=== PATIENT | female | born 1935 | race Caucasian/White ===

== ENCOUNTER → 2018-12-17 | Outpatient (CLI) | payer MEDICARE | END | disposition home or self-care (01) | LOC: Rad HDHVI 08:20 | PROVIDERS: ATTEND Internal Medicine Cardiovascular Disease | DX: I08.8 Other rheumatic multiple valve diseases (principal); I10 Essential (primary) hypertension | CPT/HCPCS: 93306 ==

== ENCOUNTER → 2018-12-18 | Outpatient (CLI) | payer MEDICARE ==
[~2018-12-18] VITALS: Ht 149.9 cm; Wt 49.9 kg
[~2018-12-18] MED LIST: ATO40T PO; ATOR10TA PO; DONE5TAB31 PO; HYDR12.56 PO; HYDR200T36 PO; LEV50T PO; LOSA-69 PO; NIFE90TA30 PO; TEMA30CA PO
== END | disposition home or self-care (01) ==
LOC: Rad HDHVI 08:10
PROVIDERS: ATTEND Internal Medicine Cardiovascular Disease
DX: R42 Dizziness and giddiness (principal); E78.00 Pure hypercholesterolemia, unspecified; I10 Essential (primary) hypertension
CPT/HCPCS: 78452; 93017; 96374; A9500

== ENCOUNTER → 2019-01-04 | Outpatient (CLI) | payer MEDICARE ==
[2019-01-04 09:30] VITALS: BP 116/57
[2019-01-04 10:15] VITALS: BP 112/59
--- NOTE | 2019-01-04 10:15 | NUR ---
Pre-Op Discharge Summary: See e-MAR for any medications given for this visit. Pre-op orders received and carried out per MD of EKG, LABS and chest xrays. Patient given a copy of EKG with instructions to go to [facility] out patient for further follow up care.
[2019-01-04 12:11] LABS: Basophils # (auto) 0 uL; Basophils % (auto) 0.6 % (0.0-2.0); Eosinophils # (auto) 0.1 uL; Eosinophils % (auto) 1.4 % (0.0-7.0); Hemoglobin 14.7 g/dL (12.2-16.2); Lymphocytes # (auto) 1.6 uL; Lymphocytes % (auto) 26.8 % (10.0-50.0); Mean Corpuscular Hemoglobin 31.9 pg (28.0-32.0); Mean Corpuscular Hgb Conc. 33.5 g/dL (32.0-36.0); Mean Corpuscular Volume 95.1 fL (80.0-100.0); Monocytes # (auto) 0.5 uL; Monocytes % (auto) 9.2 % (0.0-12.0); Neutrophils # (auto) 3.7 uL; Platelet Count (auto) 228 10^3/uL (140-450); Red Blood Cells 4.63 10^6/uL (4.0-5.20); Red Cell Distribution Width 13.7 % (11.8-14.3); White Blood Cell 5.9 10^3/uL (4.4-10.8)
[2019-01-04 12:19] LABS: Calcium 8.9 mg/dL (8.5-10.1); Potassium 3.5 mmol/L (3.5-5.1)
[2019-01-04 12:21] LABS: BUN/Creatinine Ratio 18.8
[2019-01-04 12:32] LABS: INR 0.97 (0.9-1.15); Partial Thromboplastin Time 25.2 sec (23.64-32.05)
== END | disposition home or self-care (01) ==
LOC: Rad HDHVI 09:16
PROVIDERS: ATTEND Internal Medicine Cardiovascular Disease
DX: I70.0 Atherosclerosis of aorta (principal); I51.7 Cardiomegaly; K44.9 Diaphragmatic hernia without obstruction or gangrene; R94.31 Abnormal electrocardiogram [ECG] [EKG]
CPT/HCPCS: 36415; 71046; 80048; 85025; 85610; 85730; 93005; G0463

== ENCOUNTER 2019-01-07 07:30 | Inpatient (IN) | payer MEDICARE ==
[~2019-01-07] VITALS: Ht 149.9 cm; Wt 51.1 kg
[2019-01-07] MEDS ORDERED: LIDOCAINE 2%HCL (LOCAL ANESTH.) INJ 20ML MDV ONE (08:07)
[2019-01-07] MEDS ORDERED: ceFAZolin 1GM/50ML 50 ML IV ONE ×2 (08:11→09:19)
[2019-01-07] MEDS ORDERED: fentaNYL CITRATE 100 MCG/2 ML VL ONE (09:18)
[2019-01-07] MEDS ORDERED: VANCOMYCIN HCL 1000 MG VL ONE (09:18)
[2019-01-07] MEDS ORDERED: MIDAZOLAM HCL 1MG/1ML-2 ML VIAL ONE (09:18)
[2019-01-07] MEDS ORDERED: VANCOMYCIN 1GM/250ML 250 ML IV ONE (09:19)
[2019-01-07] MEDS ORDERED: IOHEXOL 350 MG/ML 100ML IJ ONE (09:43)
[2019-01-07] MEDS ORDERED: LOSA-69 PO (10:49)
[2019-01-07] MEDS ORDERED: DONE5TAB31 PO (10:49)
[2019-01-07] MEDS ORDERED: TEMA30CA PO (10:49)
[2019-01-07] MEDS ORDERED: HYDR12.56 PO (10:56)
[2019-01-07] MEDS ORDERED: HYDR200T36 PO (10:56)
[2019-01-07] MEDS ORDERED: LEV50T PO (10:56)
[2019-01-07] MEDS ORDERED: ATOR10TA PO (10:56)
[2019-01-07] MEDS ORDERED: NIFE90TA30 PO (10:56)
[2019-01-07] MEDS ORDERED: ATO40T PO (11:01)
[2019-01-07] MEDS ORDERED: MORPHINE SULF INJ 2 MG/ML SYRINGE 1ML IV PRN (11:15)
[2019-01-07] MEDS ORDERED: LOSARTAN POTASSIUM 50 MG TAB PO ONE (11:15)
[2019-01-07] MEDS ORDERED: HCTZ 25 MG TAB PO ONE (11:15)
[2019-01-07] MEDS ORDERED: HYDROXYCHLOROQUINE SULFATE 200 MG TAB PO ONE (11:15)
[2019-01-07] MEDS ORDERED: LEVOTHYROXINE SODIUM 25 MCG TAB PO ONE (11:15)
[2019-01-07] MEDS ORDERED: ceFAZolin 1GM/50ML 50 ML IV SCH (11:15)
[2019-01-07] MEDS ORDERED: ACETAMINOPHEN 325 MG TAB PO PRN (11:15)
[2019-01-07] MEDS ORDERED: TEMAZEPAM 15 MG CAP PO PRN (11:15)
[2019-01-07] MEDS ORDERED: NITROGLYCERIN 0.4 MG SL TAB SL PRN (11:15)
[2019-01-07] MEDS ORDERED: NIFEdipine ER 30 MG TAB PO ONE (11:15)
[2019-01-07 15:30] VITALS: BP 126/59
--- NOTE | 2019-01-07 15:30 | NUR ---
PATIENT ARRIVED ON UNIT. RECEIVED REPORT FROM SHERICE. PATIENT ORIENTED TO [facility]. PATIENT ORIENTED TO HOSPITAL SETTING. PATIENT VERBALIZED UNDERSTANDING. PATIENT INFORMED TO KEEP ARM STILL AND REFRAIN FROM LIFTING. PATIENT FALL PRECAUTIONS PER HOSPITAL POLICY. BED IN LOWEST LOCKED POSITION WITH CALL LIGHT WITHIN REACH.
[2019-01-07 17:00] VITALS: BP 129/59
[2019-01-07] MEDS: ceFAZolin 1GM/50ML 50 ML IV SCH (17:45)
--- NOTE | 2019-01-07 19:05 | NUR ---
Opening Shift Note Received report from day shift nurseRandy. Assumed care of patient. Patient is awake, alert, and orientated x 3; patient unaware on how she go to the room. No S/S of distress/SOB or pain. Bed is in lowest position with side rails up x 4. Bed brakes are locked and call light is with in reach. HOB is 30 degrees and bed alarm is on. Instructed on POC and to call for assist PRN, will continue to monitor for changes Q1hr and PRN.
--- NOTE | 2019-01-07 20:15 | NUR ---
Bed alarm Pt getting up and setting off bed alarm regardless of being told numerous times to call and not get up. Pt is a/o x 3. Pt continues to ask how she got to the room regardless of being told numerous time. pt reorientated.
[2019-01-07] MEDS ORDERED: DONEPEZIL HYDROCHLORIDE 5 MG TAB PO SCH (22:00)
[2019-01-07] MEDS ORDERED: ATORVASTATIN 20 MG TAB PO SCH (22:00)
[2019-01-07 22:15] VITALS: BP 144/71
--- NOTE | 2019-01-07 22:51 | NUR ---
rounds Pt getting up and setting off bed alarm regardless of being told numerous times to call and not get up. pt's arm sling off. sling put in place and advised patient not to take off. Pt is a/o x 3. Pt continues to ask how she got to the room regardless of being told numerous time. pt reorientated.
[2019-01-08] MEDS ORDERED: HALOPERIDOL LACTATE 5 MG/ML INJ VIAL IV ONE (01:00)
[2019-01-08] MEDS: ceFAZolin 1GM/50ML 50 ML IV SCH (02:00)
--- NOTE | 2019-01-08 04:00 | NUR ---
TRANSFER The patient has been transferred from 247A to 288B. Report has been received from Abhijit LOPEZ. The patient is comfortable and stable. Patient refuses to keep sling on left arm. The patient has been educated about the sling and why it is necessary to keep on.
[2019-01-08 04:40] VITALS: BP_SYST 145; BP_SYST 156; BP_DIAS 69; BP_DIAS 92
--- NOTE | 2019-01-08 07:20 | NUR ---
pt awake, alert, oriented to self, , time. re-oriented pt to room environment. pt under direct observation, bed locked and in lowest position, will continue to monitor.
[2019-01-08 09:00] VITALS: BP 143/65
[2019-01-08] MEDS ORDERED: NIFEdipine ER 30 MG TAB PO SCH (10:00)
[2019-01-08] MEDS ORDERED: HCTZ 25 MG TAB PO SCH (10:00)
[2019-01-08] MEDS ORDERED: LOSARTAN POTASSIUM 50 MG TAB PO SCH (10:00)
[2019-01-08] MEDS ORDERED: LEVOTHYROXINE SODIUM 25 MCG TAB PO SCH (10:00)
[2019-01-08] MEDS ORDERED: HYDROXYCHLOROQUINE SULFATE 200 MG TAB PO SCH (10:00)
[2019-01-08 11:24] VITALS: BP 143/65
--- NOTE | 2019-01-08 12:23 | NUR ---
MOBILE DEVICE ENGINEER CONFIRMATION OF ACCEPTANCE TO [facility].
[2019-01-08 13:00] VITALS: BP 140/69
--- NOTE | 2019-01-08 13:24 | NUR ---
D/C Planning Per consult for home health for physical therapy, surgical wound care and medication monitoring. Information and choice letter was given to Pt at bedside. Pt had no home health preference. Advised Pt at bedside order will be sent to [facility]. Pt verbalize understanding. Contact [facility] Ph:( [phone]) Fax:( [phone] faxed medical records. Per Sj from [facility] Pt has been accepted and service to start within 48hrs upon d/c day. Informed JOHN Howell. Addendum: 01/08/19 at 1332 by ELIZABETH SENA Amended: Links added.
--- NOTE | 2019-01-08 15:30 | NUR ---
PATIENT DC'D BY COVERING RN (HERBERTH). ALL QUESTIONS AND CONCERNS ADDRESSED.
== END 2019-01-08 15:15 | disposition home health service (06) | DRG 244 ==
LOC: CATH 07:30 → TELE-EAST 07:31 → TELE-WESTW 01-08 04:09
PROVIDERS: ADMIT Internal Medicine Cardiovascular Disease; ATTEND Internal Medicine Cardiovascular Disease
PROC: 0JH606Z Insertion of Pacemaker, Dual Chamber into Chest Subcutaneous Tissue and Fascia, Open Approach (ICD-10-PCS; principal; 2019-01-07)
PROC: 02H63JZ Insertion of Pacemaker Lead into Right Atrium, Percutaneous Approach (ICD-10-PCS; 2019-01-07)
PROC: 02HK3JZ Insertion of Pacemaker Lead into Right Ventricle, Percutaneous Approach (ICD-10-PCS; 2019-01-07)
DX: I49.5 Sick sinus syndrome (principal); I10 Essential (primary) hypertension; E78.5 Hyperlipidemia, unspecified; M19.90 Unspecified osteoarthritis, unspecified site; J44.9 Chronic obstructive pulmonary disease, unspecified; Z79.899 Other long term (current) drug therapy
CPT/HCPCS: 33208; 36415; 71045; 71046; 80048; 85025; 85610; 85730; 93005; 99152; 99153; C1785; G0378; G0463; J0690; J2250

== ENCOUNTER → 2019-04-26 | Outpatient (CLI) | payer MEDICARE ==
[~2019-04-26] MED LIST changes: -ATOR10TA PO; -NIFE90TA30 PO; +NIFE90TA49 PO; +POTA-220 PO; +TRAZ50TA2 PO
--- NOTE | 2019-04-26 09:56 | NUR ---
Pre-Op Discharge Summary: See e-MAR for any medications given for this visit. Pre-op orders received and carried out per MD of EKG, LABS and chest xrays. Patient given a copy of EKG with instructions to go to [facility] out patient for further follow up care.
[2019-04-26 12:27] LABS: Basophils # (auto) 0 uL; Basophils % (auto) 0.4 % (0.0-2.0); Eosinophils # (auto) 0 uL; Eosinophils % (auto) 0.5 % (0.0-7.0); Hematocrit 41.1 % (36.0-46.0); Hemoglobin 13.7 g/dL (12.2-16.2); Lymphocytes # (auto) 0.9 uL; Lymphocytes % (auto) 21.9 % (10.0-50.0); Mean Corpuscular Hemoglobin 31.3 pg (28.0-32.0); Mean Corpuscular Hgb Conc. 33.3 g/dL (32.0-36.0); Mean Corpuscular Volume 93.9 fL (80.0-100.0); Monocytes # (auto) 0.4 uL; Monocytes % (auto) 10.4 % (0.0-12.0); Neutrophils # (auto) 2.6 uL; Neutrophils % (auto) 66.8 % (37.0-80.0); Nucleated Red Blood Cells % 0.1 %; Platelet Count (auto) 182 10^3/uL (140-450); Red Blood Cells 4.38 10^6/uL (4.0-5.20); Red Cell Distribution Width 14.4 % (11.8-14.3)
[2019-04-26 12:42] LABS: Calcium 8.8 mg/dL (8.5-10.1)
[2019-04-26 12:45] LABS: BUN/Creatinine Ratio 20.3; INR 1.03 (0.9-1.15); Partial Thromboplastin Time 24.5 sec (23.64-32.05)
[2019-04-26 12:56] VITALS: BP 122/57
[2019-04-26 12:58] VITALS: BP 116/60
== END | disposition home or self-care (01) ==
LOC: Rad HDHVI 09:10
PROVIDERS: ATTEND Internal Medicine Cardiovascular Disease
DX: Z01.812 Encounter for preprocedural laboratory examination (principal); K44.9 Diaphragmatic hernia without obstruction or gangrene; E03.9 Hypothyroidism, unspecified; R53.83 Other fatigue; I49.5 Sick sinus syndrome; Z95.0 Presence of cardiac pacemaker
CPT/HCPCS: 36415; 71046; 80048; 84443; 85025; 85610; 85730; 93005; G0463